=== PATIENT | male | born 1955 | race Two or more races ===

== ENCOUNTER 2017-10-05 08:26 | Emergency (ER) | payer BC ==
[2017-10-05 08:36] VITALS: BP 134/87
--- NOTE | 2017-10-05 08:56 | EDPHY ---
H & P Time Seen by Provider: 10/05/17 08:35 HPI/ROS: CHIEF COMPLAINT: Back pain HISTORY OF PRESENT ILLNESS: Patient is a 61-year-old male who presents emergency department after developing back pain yesterday. The patient states that he sneezed while standing. He was in the slightly awkward position., and felt sudden spasm of his lower back. Since that time he has had low back pain. It is primarily on the right side. He describes it as moderate. It is worse with movement. It does not radiate. No weakness or numbness of his extremities. No incontinence of urine or stool. No fevers or chills. No abdominal pain. No nausea or vomiting. REVIEW OF SYSTEMS: My complete review of systems is negative except as mentioned in the HPI. Past Medical/Surgical History: Includes Hypertension Smoking Status: Never smoked Physical Exam: Vitals noted GENERAL: Well-appearing, in no acute distress, alert. HEENT: Eyes normal to inspection, normal pharynx, no signs of dehydration. NECK: No thyromegaly, no lymphadenopathy, supple. RESPIRATORY: Clear to auscultation bilaterally, no rales, rhonchi or wheezing. CVS: Regular rate and rhythm, no rubs, murmurs, or gallops. ABDOMEN: Soft, nontender, nondistended, no organomegaly. Benign. No palpable mass. BACK: Normal to inspection, no CVA tenderness. Mild right lower lateral tenderness to palpation. No spinal tenderness SKIN: Normal color, no rash, warm, dry. No pallor. EXTREMITIES: No pedal edema, no calf tenderness, no Homans sign or cords, no joint swelling. NEURO/PSYCH: Alert and oriented, normal mood and affect, normal motor sensory exam. Negative leg raise bilaterally Constitutional: Initial Vital Signs Temperature (C) 36.2 C 10/05/17 08:33 Heart Rate 70 10/05/17 08:33 Respiratory Rate 18 10/05/17 08:33 Blood Pressure 134/87 H 10/05/17 08:33 O2 Sat (%) 95 10/05/17 08:33 O2 Delivery Mode Room Air Allergies/Adverse Reactions: No Known Allergies Allergy (Verified 10/05/17 08:51) Home Medications: Medication Instructions Recorded Cyclobenzaprine [Flexeril] 10 mg PO TID #15 tab 10/05/17 Hydrocodone/APAP 5/325 [[place] 1 - 2 tab PO Q4 #13 tab 10/05/17 5/325 (RX)] Medical Decision Making ED Course/Re-evaluation: In the emergency department I discussed possible etiologies with the patient. I answered all his questions. I offered the patient medication in the emergency department but he drove. He would prefer to take a prescription. He is given Flexeril and Vicodin. He will continue to take ibuprofen. He took ibuprofen prior to arrival. He was given warnings prior to leaving. He will return with worsening symptoms. Differential Diagnosis: The patient presents emergency department with sudden back pain after sneezing. It is worse with movement. It is in his lateral lower back. It seems musculoskeletal. I doubt acute disc herniation. I doubt cauda equina syndrome. I do not think this is an aneurysm or abdominal pathology. Departure - Departure Disposition: Home, Routine, Self-Care Clinical Impression: Low back pain Qualifiers: Chronicity: acute Back pain laterality: right Sciatica presence: without sciatica Qualified Code(s): M54.5 - Low back pain Condition: Good Instructions: Acute Low Back Pain (ED) Additional Instructions: Return with increasing pain, weakness, numbness, incontinence of urine or stool , or any other concerns. Referrals: Tamika Chaidez MD [[facility] [place] Primary Care Provider] - 5-7 days, call for appt. Prescriptions: Cyclobenzaprine [Flexeril] 10 mg PO TID #15 tab Hydrocodone/APAP 5/325 [[place] 5/325 (RX)] 1 - 2 tab PO Q4 #13 tab
== END 2017-10-05 09:09 | disposition home or self-care (01) ==
LOC: CED 08:26
DX: M54.5 Low back pain (principal); I10 Essential (primary) hypertension